=== PATIENT | male | born 1990 | race African-American/Black ===

== ENCOUNTER 2021-09-16 17:45 | Emergency (ER) | payer MEDICAID ==
[~2021-09-16] VITALS: Ht 180.3 cm; Wt 106.6 kg
[2021-09-16] MEDS ORDERED: LIDOCAINE 1%HCL (LOCAL ANESTH) 10 ML MDV ONE (19:52)
[2021-09-16] MEDS ORDERED: HYDROcodone-ACET 5/325MG TAB PO ONE ×2 (20:00→22:15)
[2021-09-16] MEDS ORDERED: LIDOCAINE 1% HCL (LOCAL ANESTH.) INJ 20ML MDV ID ONE (20:00)
[2021-09-16] MEDS ORDERED: BACITRACIN INJ 50000 UNIT VIAL TOP ONE (21:30)
[2021-09-16] MEDS ORDERED: BACITRACIN TOP OINT 1 UD PKG TOP ONE (21:45)
[2021-09-16] MEDS ORDERED: CEPHALEXIN 250 MG CAP PO ONE (22:15)
[2021-09-16 22:27] VITALS: BP 125/48
[2021-09-16] MEDS ORDERED: IBUP600T28 PO (22:50)
[2021-09-16] MEDS ORDERED: CEPH500C PO (22:50)
[2021-09-16] MEDS ORDERED: HYDR-4902 PO (22:50)
== END 2021-09-16 23:49 | disposition home or self-care (01) ==
LOC: ER 17:45
DX: S81.812A Laceration without foreign body, left lower leg, initial encounter (principal); W26.8XXA Contact with other sharp object(s), not elsewhere classified, initial encounter; Y93.89 Activity, other specified; Y92.89 Other specified places as the place of occurrence of the external cause; Y99.8 Other external cause status
CPT/HCPCS: 12005; 99285; J2001

== ENCOUNTER 2021-10-03 11:51 | Emergency (ER) | payer MEDICAID ==
[~2021-10-03] VITALS: Ht 180.3 cm; Wt 104.3 kg
[~2021-10-03 11:51] MED LIST: CEPH500C PO; HYDR-4902 PO
[2021-10-03 11:52] VITALS: BP 113/76
== END 2021-10-03 13:10 | disposition left against medical advice (07) ==
LOC: ER 11:51
DX: M79.89 Other specified soft tissue disorders (principal); Z53.21 Procedure and treatment not carried out due to patient leaving prior to being seen by health care provider

== ENCOUNTER 2022-08-07 07:25 | Emergency (ER) | payer MEDICAID ==
[~2022-08-07] VITALS: Ht 175.3 cm; Wt 100.0 kg
[2022-08-07] MEDS ORDERED: ONDANSETRON HCL 4 MG/2 ML VIAL IV ONE (07:45)
[2022-08-07] MEDS ORDERED: MORPHINE SULFATE 4 MG/ML SYR/VIAL IV ONE (07:45)
[2022-08-07] MEDS ORDERED: SODIUM CHLORIDE 0.9% 1,000 ML IV ONE ×2 (07:45)
[2022-08-07 08:01] LABS: Basophils # (auto) 0.1 10 ^3/uL (0-0.2); Basophils % (auto) 0.5 % (0.0-2.0); Eosinophils # (auto) 0.1 10 ^3/uL (0-0.8); Eosinophils % (auto) 0.6 % (0.0-7.0); Hematocrit 46.7 % (41.0-53.0); Hemoglobin 15.6 g/dL (13.5-17.5); Lymphocytes # (auto) 2.6 10 ^3/uL (0.4-5.4); Lymphocytes % (auto) 15.6 % (10.0-50.0); Mean Corpuscular Hemoglobin 30.9 pg (28.0-32.0); Mean Corpuscular Hgb Conc. 33.5 g/dL (32.0-36.0); Mean Corpuscular Volume 92.3 fL (80.0-100.0); Monocytes % (auto) 6.2 % (0.0-12.0); Neutrophils # (auto) 12.8 10 ^3/uL (1.6-8.6); Neutrophils % (auto) 77.1 % (37.0-80.0); Nucleated Red Blood Cells % 0.9 %; Red Blood Cells 5.06 10^6/uL (4.5-5.90); Red Cell Distribution Width 13.4 % (11.8-14.3); White Blood Cell 16.6 10^3/uL (4.4-10.8)
[2022-08-07 08:10] LABS: Albumin 4.1 g/dL (3.4-5.0); BUN/Creatinine Ratio 12.2 (10.0-20.0); Calcium 9.7 mg/dL (8.5-10.1); Potassium 3.5 mmol/L (3.5-5.1)
[2022-08-07 08:12] LABS: Bilirubin, Total 0.5 mg/dL (0.2-1.0); Total Protein 8.3 g/dL (6.4-8.2)
[2022-08-07 08:45] LABS: Urine Bacteria NONE SEEN /hpf (None Seen); Urine Blood Negative /uL (Negative); Urine Specific Gravity 1.023 (1.001-1.035); Urine WBC 1 /hpf (0 - 3)
[2022-08-07 09:12] LABS: Alcohol, Urine < 3.0 mg/dL (0-10); Amphetamine Screen, Urine NEGATIVE (NEGATIVE); Barbiturate Scree,Urine NEGATIVE (NEGATIVE); Benzodiazephine Screen, Urine NEGATIVE (NEGATIVE); Cannabinoid Screen, Urine POSITIVE (NEGATIVE); Cocaine Screen, Urine NEGATIVE (NEGATIVE); Opiate Scree,Urine NEGATIVE (NEGATIVE); Phencyclidine Screen, Urine NEGATIVE (NEGATIVE)
[2022-08-07] MEDS ORDERED: METR500T PO (10:47)
[2022-08-07] MEDS ORDERED: CEPH-510 PO (10:47)
[2022-08-07 11:00] VITALS: BP 100/60
[2022-08-07] MEDS ORDERED: cefTRIAXone 1GM/50ML D5W 50 ML IV ONE (11:00)
== END 2022-08-07 11:20 | disposition home or self-care (01) ==
LOC: ER 07:25 → EDBD 07:25 → ER 11:20
DX: R10.9 Unspecified abdominal pain (principal); K52.9 Noninfective gastroenteritis and colitis, unspecified; F12.90 Cannabis use, unspecified, uncomplicated
CPT/HCPCS: 36415; 74176; 80053; 80307; 81001; 85025; 96361; 96365; 96375; 99285; J0696; J2270; J2405; J7030

== ENCOUNTER 2022-12-26 13:34 | Emergency (ER) | payer MEDICAID ==
[~2022-12-26] VITALS: Ht 180.3 cm; Wt 82.0 kg
[~2022-12-26 13:34] MED LIST changes: +CEPH-510 PO; +METR500T PO
[2022-12-26] MEDS ORDERED: ACET500T58 PO (14:35)
[2022-12-26] MEDS ORDERED: IBUP-1455 PO (14:35)
[2022-12-26 15:29] VITALS: BP 130/74; PULSE 100; RESP 16; TEMP 97.8; O2SAT 100
== END 2022-12-26 15:31 | disposition home or self-care (01) ==
LOC: ER 13:34
DX: S93.402A Sprain of unspecified ligament of left ankle, initial encounter (principal); F12.10 Cannabis abuse, uncomplicated; X50.1XXA Overexertion from prolonged static or awkward postures, initial encounter; Y93.02 Activity, running; Y92.89 Other specified places as the place of occurrence of the external cause; Y99.8 Other external cause status
CPT/HCPCS: 73610

== ENCOUNTER 2023-01-12 02:26 | Emergency (ER) | payer MEDICAID ==
[~2023-01-12] VITALS: Ht 180.3 cm; Wt 90.0 kg
[~2023-01-12 02:26] MED LIST changes: +ACET500T58 PO; +IBUP-1455 PO
[2023-01-12] MEDS ORDERED: HYDR25CA PO (03:02)
[2023-01-12 03:10] VITALS: PULSE 93; RESP 20; O2SAT 97
[2023-01-12 03:15] VITALS: BP 107/72; PULSE 93; RESP 20; TEMP 98.4; O2SAT 97
== END 2023-01-12 03:24 | disposition home or self-care (01) ==
LOC: EDBD 02:26 → ER 02:26
DX: F41.9 Anxiety disorder, unspecified (principal); F12.10 Cannabis abuse, uncomplicated